=== PATIENT | male | born 1990 | race Two or more races ===

== ENCOUNTER 2019-12-02 16:53 | Emergency (ER) | payer OTHER ==
[2019-12-02] MEDS ORDERED: NORMAL SALINE 1000 ML 1,000 ML IV ONE ×2 (16:56→17:23)
--- NOTE | 2019-12-02 17:05 | ER Document Report ---
ED Medical Screen (RME) - General Chief Complaint: General Weakness Stated Complaint: GENERAL WEAKNESS Time Seen by Provider: 12/02/19 16:55 Primary Care Provider: [facility] [Outside] - Follow up as needed (Local Voluntary Alcohol Detoxification. They are not medical detoxification but are capable of helping most individuals. You can walk in, call or utilize mobile crisis in order to get into this facility.) [facility] [Outside] - Follow up as needed [facility] [Outside] - Follow up as needed (To initiate services: walk in Thursday-Thursday 8:00AM-4:30PM. It willl be a general comprehensive clinical assessment. From that walk in you will get appointments scheduled. ) [facility] [Outside] - Follow up as needed Notes: Patient is a 29-year-old male who presents to the emergency department with a chief complaint of weakness. Patient ended up losing consciousness in the waiting room. I initially saw him in the waiting room and the patient was moved to a stretcher. According to the patient's fianc, the patient has not been feeling well for a month. Patient was at work and "fell out," according to the fianc. Exam: Lethargic, hard to wake up. I have greeted and performed a rapid initial assessment of this patient. A comprehensive ED assessment and evaluation of the patient, analysis of test results and completion of medical decision making process will be conducted by an additional ED providers. TRAVEL OUTSIDE OF THE [place] IN LAST 30 DAYS: No - Related Data Allergies/Adverse Reactions: No Known Allergies Allergy (Verified 11/08/15 07:42) Past Medical History GI Medical History: Reports: Hx Colonoscopy, Hx Endoscopy Musculoskeltal Medical History: Reports Hx Musculoskeletal Trauma Skin Medical History: Reports Hx Cellulitis Psychiatric Medical History: Reports: Hx Depression Traumatic Medical History: Reports: Hx Fractures - hand Past Surgical History: Reports: Hx Abdominal Surgery - pyloric stenosis - Immunizations Hx Diphtheria, Pertussis, Tetanus Vaccination: Yes - 2008 Physical Exam - Vital signs Vitals: Pulse Ox 95 12/02/19 16:56 Course - Vital Signs Vital signs: Temp Pulse Resp BP Pulse Ox 97.3 F 95 12/02/19 17:07 12/02/19 16:56 - Laboratory Result Diagrams: 12/02/19 17:09 12/02/19 17:09 Laboratory results interpreted by me: 12/02/19 12/02/19 12/02/19 17:07 17:09 17:09 Hgb 17.2 H Seg Neutrophils % 40.7 L VBG pH Glucose 121 H POC Glucose 121 H AST 69 H ALT 71 H Creatine Kinase 291 H 12/02/19 19:42 Hgb Seg Neutrophils % VBG pH 7.27 L Glucose POC Glucose AST ALT Creatine Kinase Doctor's Discharge - Discharge Clinical Impression: Depression Qualifiers: Depression Type: unspecified Qualified Code(s): F32.9 - Major depressive disorder, single episode, unspecified Alcohol intoxication Qualifiers: Complication of substance-induced condition: with unspecified complication Qualified Code(s): F10.929 - Alcohol use, unspecified with intoxication, unspecified Condition: Stable Disposition: HOME, SELF-CARE Additional Instructions: You have been evaluated by both medical and behavioral health teams for syncope, general weakness, depression, passive suicidal ideation and alcohol intoxication with use disorder severe. You have been deemed appropriate for discharge. While in the emergency department you received the following services: Medical screening and assessment, nursing services, dietary services, pharmacological services, one-on-one counseling and/or psychotherapy, environmental services, and continuous observation by a patient safety and security manager. It is recommended you go to voluntary inpatient alcohol detoxification where you can be medically monitored during withdrawal. You declined this linkage and connection but have still been provided resources. In addition you have both mobile crisis numbers and a list of local mental health providers for ongoing support and treatment via medication management and therapy. Alcohol is a depressant so often increases depression and suicidal ideation. CHRONIC ALCOHOLISM and ALCOHOL ABUSE: Your evaluation reveals evidence of chronic alcoholism, an addiction to alcohol. The tendency to alcoholism may be inherited. Chronic use of alcohol weakens muscles, causes fatty deposits in the liver, damages the stomach, makes you more prone to infections, and can cause defects in unborn children. In the long run, brain atrophy and cirrhosis of the liver result. You are also at greater risk for certain types of cancer, such as cancer of the mouth, throat, stomach, and liver. Counselling services are available to help you. In-hospital treatment programs often help. Support groups such as Alcoholics Anonymous can be very useful in beating this addiction. Your physician can make a referral for you. As alcoholics often are prone to other addictions, you should discuss your use of any other medications with the doctor. ALCOHOL WITHDRAWAL: (concerns for this if your abruptly stop, medical detoxification is recommended when you abruptly stop suing alcohol) Your symptoms are caused by alcohol withdrawal. After a period of frequent drinking, the brain and body are changed by the alcohol. When you quit or reduce your drinking, the nervous system becomes unstable. Withdrawal symptoms can start a few hours after your last drink, but sometimes don't begin until a couple of days later. Symptoms can include shakiness, sweating, insomnia, nausea, vomiting, fearfulness, hallucinations, and seizures. In addition to the acute effects of alcohol withdrawal, we often have to deal with the medical effects of alcoholism. These problems often include dehydration, stomach irritation, intestinal bleeding, low blood sugar, liver disease, and pancreas inflammation. Treatment for alcohol withdrawal includes mild sedatives, vitamins, and fluids. You need to be with someone who can help if symptoms become severe. Many patients can withdraw at home. Admission to the hospital or a detox facility may be necessary if withdrawal symptoms are severe and uncontrollable. Abstaining from alcohol is the only effective long-term treatment. If you start drinking again, you will not be able to control yourself after the first drink. Treatment programs are available. In addition, many alcoholics benefit from Alcoholics Anonymous or other support groups available through your counselor or druze rn radiation oncology. AL-ANON and ALA-TEEN are support groups for friends and family members of an alcoholic. Go to the emergency room if you develop persistent vomiting, severe abdominal pain, fever, shortness of breath, hallucinations, uncontrollable tremors, or seizures. DEPRESSION: Your evaluation reveals that you have mental depression. While symptoms may be vague, they often include disturbance of sleep, fatigue, loss of appetite, and general loss of interest in life. While depression may be a side effect of drugs, or a reaction to a major change in your life, many cases have no known c ause. If depression is acute, and related to a major loss in your life, you can expect it to clear completely with time. If you have been depressed a long time, are prone to repeated bouts of depression or low mood, or have been thinking of suicide, get help. Depression can be treated with anti-depressant medication and counselling. Long-term depression will often take a few weeks to clear, even with appropriate medication. Follow-up care is important. SUICIDAL IDEATION: (even passive general thoughts of not wanting to live) Suicidal ideation is a common medical term for thoughts about suicide, which may be as detailed as a formulated plan, without the suicidal act itself. Although most people who undergo suicidal ideation do not commit suicide, some go on to make suicide attempts. The range of suicidal ideation varies greatly from fleeting to detailed planning, role playing, and unsuccessful attempts. While thoughts about suicide are common, most people do not carry out serious actions to commit suicide. Based upon your evaluation and discussion with you, we do not believe you are currently at risk to act upon your thoughts of suicide. You have agreed to return to the Emergency Department, at any time, if you feel inclined to act upon your suicidal thoughts. FOLLOW-UP CARE: You declined direct linkage to voluntary inpatient treatment for alcohol det oxification, to outpatient mental health agencies for medication management and/or therapy but are being provided all of these resources as well as mobile crisis numbers. You are recommended to go to medical detoxification for alcohol use. If you experience worsening or a significant change in your symptoms notify your physician immediately, utilize mobile crisis or return to the Emergency Department at any time for re-evaluation. Referrals: [facility] [Outside] - Follow up as needed ([facility] Voluntary Alcohol Detoxification. They are not medical detoxification but are capable of helping most individuals. You can walk in, call or utilize mobile crisis in order to get into this facility.) [facility] [Outside] - Follow up as needed [facility] [Outside] - Follow up as needed (To initiate services: walk in Thursday-Thursday 8:00AM-4:30PM. It willl be a general comprehensive clinical assessment. From that walk in you will get appointments scheduled. ) [facility] [Outside] - Follow up as needed
--- NOTE | 2019-12-02 17:23 | ER Document Report ---
ED Syncope and Near Syncope <TANIA RIVERA - Last Filed: 12/02/19 19:10> - General Mode of Arrival: Medic Information source: Patient TRAVEL OUTSIDE OF THE [place] IN LAST 30 DAYS: No <NKECHIERIKA - Last Filed: 12/02/19 19:34> <MICHAEL PERALTA JR - Last Filed: 12/03/19 03:02> - General Chief Complaint: Syncope Stated Complaint: GENERAL WEAKNESS Time Seen by Provider: 12/02/19 16:55 Primary Care Provider: [facility] [Outside] - Follow up as needed (Local Voluntary Alcohol Detoxification. They are not medical detoxification but are capable of helping most individuals. You can walk in, call or utilize mobile crisis in order to get into this facility.) [facility] [Outside] - Follow up as needed [facility] [Outside] - Follow up as needed (To initiate services: walk in Thursday-Thursday 8:00AM-4:30PM. It willl be a general comprehensive clinical assessment. From that walk in you will get appointments scheduled. ) [facility] [Outside] - Follow up as needed Notes: 29-year-old male presents to the emergency department with a history of a passing out episode at home today. 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 She noted that his speech seemed slurred and he was not himself. She called her workplace and coworkers check on him in the smoke. And found him lying unresponsive holding the phone in his hand. Patient is a heavy drinker and has been drinking large quantities of rum over the past few days. He states his last drink was this morning. There was no incontinence of urine or stool. There was no injury to suggest seizure activity. (ERIKA ARBOLEDA) - Related Data Allergies/Adverse Reactions: No Known Allergies Allergy (Verified 11/08/15 07:42) Past Medical History - Social History Smoking Status: Current Every Day Smoker Frequency of alcohol use: Heavy Drug Abuse: Marijuana Family History: Arthritis, DM, Hypertension, Malignancy Patient has homicidal ideation: No GI Medical History: Reports: Hx Colonoscopy, Hx Endoscopy Musculoskeletal Medical History: Reports Hx Musculoskeletal Trauma Skin Medical History: Reports Hx Cellulitis Psychiatric Medical History: Reports: Hx Depression Traumatic Medical History: Reports: Hx Fractures - hand Past Surgical History: Reports: Hx Abdominal Surgery - pyloric stenosis - Immunizations Hx Diphtheria, Pertussis, Tetanus Vaccination: Yes - 2008 <ERIKA ARBOLEDA - Last Filed: 12/02/19 19:34> Review of Systems <ERIKA ARBOLEDA - Last Filed: 12/02/19 19:34> - Review of Systems Notes: Constitutional: Negative for fever. HENT: Negative for sore throat. Eyes: Negative for visual changes. Cardiovascular: Negative for chest pain. Respiratory: Negative for shortness of breath. Gastrointestinal: Negative for abdominal pain, vomiting or diarrhea. Genitourinary: Negative for dysuria. Musculoskeletal: Negative for back pain. Skin: Negative for rash. Neurological: See HPI 10 point ROS negative except as marked above and in HPI. (ERIKA ARBOLEDA) Physical Exam <ERIKA ARBOLEDA - Last Filed: 12/02/19 19:34> - Vital signs Vitals: Pulse Ox 95 12/02/19 16:56 - Notes Notes: PHYSICAL EXAMINATION: Physical Exam: General: Well-nourished well-developed 29-year-old male in no acute distress HEENT: NC/AT, pupils equal round and reactive to light, MM moist,nares clear, oropharynx clear, airway patent Neck: supple, no adenopathy, no masses. Good range of motion Lungs: clear, no wheezing, no rales no rhonchi CVS: Regular rate and rhythm no murmur gallop or rub Abdomen: Soft, active, nontender, no masses, no hepatosplenomegaly Ext: No edema, clubbing or cyanosis. Neuro: Alert and responsive, moving all 4 extremities on command, cranial nerves intact, no focal findings Skin: Intact no open lesions, no rash (ERIKA ARBOLEDA) Course - Laboratory Result Diagrams: 12/02/19 17:09 12/02/19 17:09 <TANIA RIVERA - Last Filed: 12/02/19 19:10> - Laboratory Result Diagrams: 12/02/19 17:09 12/02/19 17:09 - Diagnostic Test Radiology reviewed: Image reviewed, Reports reviewed - EKG Interpretation by Sc EKG shows normal: Sinus rhythm Rate: Normal - Rate of 97, no acute ST or T wave abnormalities, borderline left axis deviation. <ERIKA ARBOLEDA - Last Filed: 12/02/19 19:34> - Laboratory Result Diagrams: 12/02/19 17:09 12/02/19 17:09 <MICHAEL PERALTA JR - Last Filed: 12/03/19 03:02> - Re-evaluation Re-evalutation: 12/02/19 19:39 Patient experienced a syncopal episode while at work, he is a heavy drinker and appeared to be somewhat somnolent upon his arrival to the emergency department there is no evidence of seizure activity and CT head, chest x-ray EKG and labs are normal. (ERIKA ARBOLEDA) - Vital Signs Vital signs: Temp Pulse Resp BP Pulse Ox 97.3 F 95 12/02/19 17:07 12/02/19 16:56 - Laboratory Laboratory results interpreted by me: 12/02/19 12/02/19 12/02/19 17:07 17:09 17:09 Hgb 17.2 H Seg Neutrophils % 40.7 L VBG pH Glucose 121 H POC Glucose 121 H AST 69 H ALT 71 H Creatine Kinase 291 H 12/02/19 19:42 Hgb Seg Neutrophils % VBG pH 7.27 L Glucose POC Glucose AST ALT Creatine Kinase - Diagnostic Test Radiology results interpreted by me: 12/02/19 19:42 CT head: No acute findings Chest x-ray: No acute cardiopulmonary findings (ERIKA ARBOLEDA) Critical Care Note <MICHAEL PERALTA JR - Last Filed: 12/03/19 03:02> - Critical Care Note Comments: Please note nursing staff discussed 1-2 week history of suicidal ideation and therefore patient was placed into the psychiatric area rather than being discharged home (MICHAEL PERALTA JR) Discharge <TANIA RIVERA - Last Filed: 12/02/19 19:10> <ERIKA ARBOLEDA - Last Filed: 12/02/19 19:34> <MICHAEL PERALTA JR - Last Filed: 12/03/19 03:02> - Discharge Clinical Impression: Depression Qualifiers: Depression Type: unspecified Qualified Code(s): F32.9 - Major depressive disorder, single episode, unspecified Alcohol intoxication Qualifiers: Complication of substance-induced condition: with unspecified complication Qualified Code(s): F10.929 - Alcohol use, unspecified with intoxication, unspecified Condition: Stable Disposition: PSYCH HOSP/UNIT Additional Instructions: You have been evaluated by both medical and behavioral health teams for syncope, general weakness, depression, passive suicidal ideation and alcohol intoxication with use disorder severe. You have been deemed appropriate for discharge. While in the emergency department you received the following services: Medical screening and assessment, nursing services, dietary services, pharmacological services, one-on-one counseling and/or psychotherapy, environmental services, and continuous observation by a patient public safety telecommunicator. It is recommended you go to voluntary inpatient alcohol detoxification where you can be medically monitored during withdrawal. You declined this linkage and connection but have still been provided resources. In addition you have both mobile crisis numbers and a list of local mental health providers for ongoing support and treatment via medication management and therapy. Alcohol is a depressant so often increases depression and suicidal ideation. CHRONIC ALCOHOLISM and ALCOHOL ABUSE: Your evaluation reveals evidence of chronic alcoholism, an addiction to alcohol. The tendency to alcoholism may be inherited. Chronic use of alcohol weakens muscles, causes fatty deposits in the liver, damages the stomach, makes you more prone to infections, and can cause defects in unborn children. In the long run, brain atrophy and cirrhosis of the liver result. You are also at greater risk for certain types of cancer, such as cancer of the mouth, throat, stomach, and liver. Counselling services are available to help you. In-hospital treatment programs often help. Support groups such as Alcoholics Anonymous can be very useful in beating this addiction. Your physician can make a referral for you. As alcoholics often are prone to other addictions, you should discuss your use of any other medications with the doctor. ALCOHOL WITHDRAWAL: (concerns for this if your abruptly stop, medical detoxification is recommended when you abruptly stop suing alcohol) Your symptoms are caused by alcohol withdrawal. After a period of frequent drinking, the brain and body are changed by the alcohol. When you quit or reduce your drinking, the nervous system becomes unstable. Withdrawal symptoms can start a few hours after your last drink, but sometimes don't begin until a couple of days later. Symptoms can include shakiness, sweating, insomnia, nausea, vomiting, fearfulness, hallucinations, and seizures. In addition to the acute effects of alcohol withdrawal, we often have to deal with the medical effects of alcoholism. These problems often include dehydration, stomach irritation, intestinal bleeding, low blood sugar, liver disease, and pancreas inflammation. Treatment for alcohol withdrawal includes mild sedatives, vitamins, and fluids. You need to be with someone who can help if symptoms become severe. Many patients can withdraw at home. Admission to the hospital or a detox facility may be necessary if withdrawal symptoms are severe and uncontrollable. Abstaining from alcohol is the only effective long-term treatment. If you start drinking again, you will not be able to control yourself after the first drink. Treatment programs are available. In addition, many alcoholics benefit from Alcoholics Anonymous or other support groups available through your counselor or restoration optometric aide. AL-ANON and ALA-TEEN are support groups for friends and family members of an alcoholic. Go to the emergency room if you develop persistent vomiting, severe abdominal pain, fever, shortness of breath, hallucinations, uncontrollable tremors, or seizures. DEPRESSION: Your evaluation reveals that you have mental depression. While symptoms may be vague, they often include disturbance of sleep, fatigue, loss of appetite, and general loss of interest in life. While depression may be a side effect of drugs, or a reaction to a major change in your life, many cases have no known cause. If depression is acute, and related to a major loss in your life, you can expect it to clear completely with time. If you have been depressed a long time, are prone to repeated bouts of depression or low mood, or have been thinking of suicide, get help. Depression can be treated with anti-depressant medication and counselling. Long-term depression will often take a few weeks to clear, even with appropriate medication. Follow-up care is important. SUICIDAL IDEATION: (even passive general thoughts of not wanting to live) Suicidal ideation is a common medical term for thoughts about suicide, which may be as detailed as a formulated plan, without the suicidal act itself. Although most people who undergo suicidal ideation do not commit suicide, some go on to make suicide attempts. The range of suicidal ideation varies greatly from fleeting to detailed planning, role playing, and unsuccessful attempts. While thoughts about suicide are common, most people do not carry out serious actions to commit suicide. Based upon your evaluation and discussion with you, we do not believe you are currently at risk to act upon your thoughts of suicide. You have agreed to return to the Emergency Department, at any time, if you feel inclined to act upon your suicidal thoughts. FOLLOW-UP CARE: You declined direct linkage to voluntary inpatient treatment for alcohol detoxification, to outpatient mental health agencies for medication management and/or therapy but are being provided all of these resources as well as mobile crisis numbers. You are recommended to go to medical detoxification for alcohol use. If you experience worsening or a significant change in your symptoms notify your physician immediately, utilize mobile crisis or return to the Emergency Department at any time for re-evaluation. Referrals: [facility] [Outside] - Follow up as needed [facility] [Outside] - Follow up as needed [facility] [Outside] - Follow up as needed (Local Voluntary Alcohol Detoxification. They are not medical detoxification but are capable of helping most individuals. You can walk in, call or utilize mobile crisis in order to get into this facility.) [facility] [Outside] - Follow up as needed (To initiate services: walk in Thursday-Thursday 8:00AM-4:30PM. It willl be a general comprehensive clinical assessment. From that walk in you will get appointments scheduled. )
[2019-12-02 17:33] LABS: ABSOLUTE EOSINOPHILS # (AUTO) 0.2 10^3/uL (0.0-0.6); ABSOLUTE LYMPHOCYTES (AUTO) 2.8 10^3/uL (0.5-4.7); ABSOLUTE MONOCYTES (AUTO) 0.8 10^3/uL (0.1-1.4); ABSOLUTE NEUT (AUTO) 2.6 10^3/uL (1.7-8.2); BASOPHILS % (AUTO) 0.4 % (0-2); HEMATOCRIT 48.8 % (37.9-51.0); HEMOGLOBIN 17.2 g/dL (13.5-17.0); LYMPHOCYTES % (AUTO) 43.5 % (13-45); MEAN CORPUSCULAR HEMOGLOBIN 32.2 pg (27.0-33.4); MEAN CORPUSCULAR HGB CONC 35.1 g/dL (32.0-36.0); MEAN CORPUSCULAR VOLUME 92 fl (80-97); MONOCYTES % (AUTO) 12.4 % (3-13); PLATELET COUNT 196 10^3/uL (150-450); RED BLOOD COUNT 5.32 10^6/uL (4.35-5.55); RED CELL DISTRIBUTION WIDTH 13.2 % (11.5-14.0); SEGMENTED NEUTROPHILS % (AUTO) 40.7 % (42-78); TOTAL CELLS COUNTED % (AUTO) 100 %; WHITE BLOOD COUNT 6.5 10^3/uL (4.0-10.5)
--- NOTE | 2019-12-02 17:42 | RADIOLOGY REPORT (SQ) ---
EXAM DESCRIPTION: CHEST SINGLE VIEW IMAGES COMPLETED DATE/TIME: 12/02/2019 5:09 pm REASON FOR STUDY: weakness COMPARISON: None. EXAM PARAMETERS: NUMBER OF VIEWS: One view. TECHNIQUE: Single frontal radiographic view of the chest acquired. RADIATION DOSE: NA LIMITATIONS: None. FINDINGS: LUNGS AND PLEURA: No opacities, masses or pneumothorax. No pleural effusion. MEDIASTINUM AND HILAR STRUCTURES: No masses. Contour normal. HEART AND VASCULAR STRUCTURES: Heart normal in size. Normal vasculature. BONES: No acute findings. HARDWARE: None in the chest. OTHER: No other significant finding. IMPRESSION: NO ACUTE RADIOGRAPHIC FINDING IN THE CHEST. TECHNICAL DOCUMENTATION: JOB ID: [id number] 2010 [employer]- All Rights Reserved Reading location - IP/workstation name: [email or web address]
--- NOTE | 2019-12-02 17:47 | RADIOLOGY REPORT (SQ) ---
EXAM DESCRIPTION: CT HEAD WITHOUT IMAGES COMPLETED DATE/TIME: 12/02/2019 5:31 pm REASON FOR STUDY: Syncope COMPARISON: 11/08/2015 TECHNIQUE: Axial images acquired through the brain without intravenous contrast. Images reviewed wi th bone, brain and subdural windows. Additional sagittal and coronal reconstructions were generated. Images stored on PACS. All CT scanners at this facility use dose modulation, iterative reconstruction, and/or weight based d osing when appropriate to reduce radiation dose to as low as reasonably achievable (ALARA). [facility]: Dose Right [facility]: CareDose [facility]: Dose Right [facility]: Teradose 4D [facility]: [employer] RADIATION DOSE: CT Rad equipment meets quality standard of care and radiation dose reduction techniq ues were employed. CTDIvol: 53.2 mGy. DLP: 991 mGy-cm. mGy. LIMITATIONS: None. FINDINGS: VENTRICLES: Normal size and contour. CEREBRUM: No masses. No hemorrhage. No midline shift. No evidence for acute infarction. Normal gra y/white matter differentiation. No areas of low density in the white matter. CEREBELLUM: No masses. No hemorrhage. No alteration of density. No evidence for acute infarction. EXTRAAXIAL SPACES: No fluid collections. No masses. ORBITS AND GLOBE: No intra- or extraconal masses. Normal contour of globe without masses. CALVARIUM: No fracture. PARANASAL SINUSES: No fluid or mucosal thickening. SOFT TISSUES: No mass or hematoma. OTHER: No other significant finding. IMPRESSION: NORMAL BRAIN CT WITHOUT CONTRAST. EVIDENCE OF ACUTE STROKE: NO. COMMENT: Quality ID # [id number]: Final reports with documentation of one or more dose reduction techniques (e.g., Automated exposure control, adjustment of the mA and/or kV according to patient size, use of iterative reconstruction technique) TECHNICAL DOCUMENTATION: JOB ID: [id number] 2010 [employer]- All Rights Reserved Reading location - IP/workstation name: [email or web address]
[2019-12-02 17:53] LABS: APPEARANCE,URINE CLEAR; BILIRUBIN,URINE NEGATIVE (NEGATIVE); COLOR,URINE COLORLESS; GLUCOSE, URINE NEGATIVE (NEGATIVE); KETONES,URINE NEGATIVE (NEGATIVE); LEUKOCYTE ESTERASE,URINE NEGATIVE (NEGATIVE); NITRITE,URINE NEGATIVE (NEGATIVE); PROTEIN,URINE NEGATIVE (NEGATIVE); URINE SPECIFIC GRAVITY 1.002; UROBILINOGEN,URINE NEGATIVE mg/dL (<2.0)
[2019-12-02 18:10] LABS: ALBUMIN 4.8 g/dL (3.5-5.0); ALKALINE PHOSPHATASE 87 U/L (38-126); ANION GAP 11 (5-19); ASPARTATE AMINO TRANSFERASE 69 U/L (17-59); BILIRUBIN,TOTAL 0.3 mg/dL (0.2-1.3); BLOOD UREA NITROGEN 19 mg/dL (7-20); CALCIUM 9.5 mg/dL (8.4-10.2); CARBON DIOXIDE 24 mmol/L (22-30); CHLORIDE 106 mmol/L (98-107); CREATINE KINASE 291 U/L (55-170); GLUCOSE 121 mg/dL (75-110); POTASSIUM 4.3 mmol/L (3.6-5.0); TOTAL PROTEIN 7.8 g/dL (6.3-8.2)
[2019-12-02 20:13] LABS: VENOUS BLOOD BASE EXCESS -5.4 mmol/L; VENOUS BLOOD PCO2 49.6 mmHg (35-63); VENOUS BLOOD PH 7.27 (7.30-7.42)
--- NOTE | 2019-12-02 20:13 | EKG REPORT ---
SEVERITY:- OTHERWISE NORMAL ECG - SINUS RHYTHM BORDERLINE LEFT AXIS DEVIATION : Confirmed by: Harvey Valadez MD 02-Dec-2019 20:12:51
[2019-12-02 21:11] LABS: URINE AMPHETAMINES SCREEN NEGATIVE; URINE BARBITURATES SCREEN NEGATIVE; URINE BENZODIAZEPINES SCREEN NEGATIVE; URINE COCAINE SCREEN NEGATIVE; URINE MARIJUANA (THC) SCREEN NEGATIVE; URINE METHADONE SCREEN NEGATIVE; URINE PHENCYCLIDINE SCREEN NEGATIVE
--- NOTE | 2019-12-03 08:28 | PSYCHOLOGICAL NOTE ---
Psych Note - Psych Note Date seen by psych provider: 12/02/19 Time seen by psych provider: 18:29 - [id number] evaluation. Jeannetavo collateral [id number]. Psych Note: Presenting Problem: Patient is a 29 year old male who presented to the [facility] ED today via POV/Fiance for syncope/general weakness. During triage he answered yes to the depressing screening questions of in the past 2 weeks have you felt down/depressed/hopeless and in the past two weeks have you had thoughts of killing yourself. Patient also admitted to regular alcohol use, drinking a liter a day. Patient was sleeping. He would not wake up to his last name being said loudly, his first name being said loudly, gently shake of hand, gentle shake of leg or combination of. The Attending ED Nurse had to do a sternum rub. He woke up, could barely keep his eyes open and answered some questions before falling asleep. He reported the suicidal thoughts are general thoughts of not wanting to live or wanting to , no plans. He denied previous suicide attempts. He admitted to previous rehab and declined wanting linkage/referral to voluntary detox. He denied being involved in outpatient mental health treatment and again declined linkage/referral. Serum Alcohol Level upon arrival to the ED was 285. Patient was alert and oriented to self, person, place, and situation when awake. Mood was difficult to ascertain but came across euthymic with congruent affect. He denied current SI/HI, admitted to answering yes to having thoughts of wanting to kill himself in the past two weeks and identified they were passive general thoughts of not wanting to live (no plan, no action per patient and fiance). Patient did not appear to be responding to internal stimuli as evidenced by answering questions appropriately when addressed. Thought processes were difficult to ascertain but he was able to stay on topic with redirection. Conversational speech was somewhat slurred and soft in tone. Intellectual abilities are estimated to be average. Insight, judgment and impulse control were fair as evidenced by being honest during depression screening. Collateral: From [id number] obtained collateral from fiance/Next of Kin/Person to Notify Babita Shankar ([phone]). She stated she brought patient to the ED today and that he had been at work. She stated "no patient is not physically a danger to self and I am not concerned for his well being in that manner." She identified patient "does struggle with alcohol abuse, he is stuck in his ways and has been that way for the past 5 years we have been together." She acknowledged he has a history of depression going back to age 12 maybe younger. Farooq stated "he o ften doesn't feel energized or like he has meaning." She reported "he has ups and downs, there are days he is good and happy and there are days when he doesn't want to do anything." She reported "he gets so down he feels worthless but then he talks about it and is okay." She gave an example of patient's daughter asking to go see her mother and patient thinking that means his daughter doesn't love him. Farooq commented "he takes things personally." Farooq stated "with alcohol he feels like he can do more things, he drinks to feel normal, sometimes it gets out of hand but usually he just goes to sleep, sometimes sleeping for 16 hours straight." She noted patient has had 2 DUIs. Farooq stated patient drinks spiced rum and Coca Cola. She stated she asks him to cut back and he says he'll work on it. She identified in the past he used marijuana, at the beginning of their relationship it affected him in a big way, now she thinks if he uses it it's occasional. Farooq stated she has been talking with patient's mother. mother is concerned about the drinking and how it affects depression, they discussed trying to have an intervention. Farooq reported patient has commented he doesn't think he would survive detox. She denied patient making previous suicide attempts. Clinical Presentation: Alcohol Intoxication Diagnosis: Alcohol Intoxication with Use Disorder, Severe History of Depression Impression/Plan: Patient is cleared from acute psychiatric services. He denied current SI/HI while admitting to passive general thoughts of not wanting to live. Both he and farooq denied previous attempts. He was under the influence of alcohol but did not seem to be responding to internal stimuli as evidenced by answering questions appropriately when addressed. Patient and farooq admitted to alcohol problem. Farooq noted a history of depression. Patient declined linkage/referral to voluntary detox and being connected to local mental health provider. Informed farooq patient would have resources as part of his discharge instructions and separate sheets. Provided patient with the outpatient MH resource sheet which highlighted both [facility] numbers for crisis/talk therapy/linkage to other services and supports, as well as documented walk in to [place] information. Also provided the outpatient SA list which highlighted both [facility] numbers/documented either would assist with voluntary detox/treatment, listed all 6 detox facilities, noted local one and also identified the 4 medical detox facilities. Consulted with Dr. Zapata regarding the management and care of patient. ED Physician in agreement with recommendations.
--- NOTE | 2019-12-03 12:05 | ER Document Report ---
Doctor's Note Notes: 12/03/19 12:04 Patient in no distress at this time. Has been evaluated by the psychiatric team today. Patient does have history of depression, does not espouse suicidal ideation at this time. Psychiatric team believe patient may be discharged to follow-up with resources, patient's fianc will pick him up. Patient notes from last night indicate that there was consideration for discharge last night still.
[2019-12-03 13:04] VITALS: BP 137/92
== END 2019-12-03 13:05 ==
LOC: ER 16:53
DX: F32.9 Major depressive disorder, single episode, unspecified (principal); F10.929 Alcohol use, unspecified with intoxication, unspecified; R53.1 Weakness; R45.851 Suicidal ideations; F17.200 Nicotine dependence, unspecified, uncomplicated
CPT/HCPCS: 93005; 99285; 96360; 96361; 36415; 87040; 82962; 80307 ×2; 82550; 83605; 83735; 85025; 80053; 81001; 82803; 71045; 70450; 93010; J7030

== ENCOUNTER → 2019-12-09 | Outpatient (CLI) | payer OTHER ==
[2019-12-09 08:25] LABS: ABSOLUTE EOSINOPHILS # (AUTO) 0.2 10^3/uL (0.0-0.6); ABSOLUTE LYMPHOCYTES (AUTO) 2.5 10^3/uL (0.5-4.7); ABSOLUTE MONOCYTES (AUTO) 0.8 10^3/uL (0.1-1.4); ABSOLUTE NEUT (AUTO) 3.1 10^3/uL (1.7-8.2); BASOPHILS % (AUTO) 0.3 % (0-2); EOSINOPHILS % (AUTO) 2.5 % (0-6); HEMATOCRIT 44.3 % (37.9-51.0); LYMPHOCYTES % (AUTO) 38.1 % (13-45); MEAN CORPUSCULAR HEMOGLOBIN 32.6 pg (27.0-33.4); MEAN CORPUSCULAR HGB CONC 36.1 g/dL (32.0-36.0); MEAN CORPUSCULAR VOLUME 90 fl (80-97); MONOCYTES % (AUTO) 11.8 % (3-13); PLATELET COUNT 166 10^3/uL (150-450); RED BLOOD COUNT 4.92 10^6/uL (4.35-5.55); RED CELL DISTRIBUTION WIDTH 12.7 % (11.5-14.0); SEGMENTED NEUTROPHILS % (AUTO) 47.3 % (42-78); TOTAL CELLS COUNTED % (AUTO) 100 %; WHITE BLOOD COUNT 6.5 10^3/uL (4.0-10.5)
[2019-12-09 08:52] LABS: ALBUMIN 4.5 g/dL (3.5-5.0); ALKALINE PHOSPHATASE 71 U/L (38-126); ANION GAP 6 (5-19); ASPARTATE AMINO TRANSFERASE 47 U/L (17-59); BILIRUBIN,TOTAL 0.6 mg/dL (0.2-1.3); BLOOD UREA NITROGEN 18 mg/dL (7-20); CALCIUM 9.1 mg/dL (8.4-10.2); CARBON DIOXIDE 27 mmol/L (22-30); CHLORIDE 105 mmol/L (98-107); GLUCOSE 97 mg/dL (75-110); POTASSIUM 3.9 mmol/L (3.6-5.0); TOTAL PROTEIN 7.3 g/dL (6.3-8.2)
== END ==
LOC: OD 07:25
PROVIDERS: ATTEND Family Medicine
DX: R53.83 Other fatigue (principal); R55 Syncope and collapse; Z83.3 Family history of diabetes mellitus
CPT/HCPCS: 36415; 80053; 84443; 85025

== ENCOUNTER 2019-12-29 14:04 | Emergency (ER) | payer OTHER ==
[2019-12-29 16:14] LABS: ABSOLUTE LYMPHOCYTES (AUTO) 0.7 10^3/uL (0.5-4.7); ABSOLUTE MONOCYTES (AUTO) 0.8 10^3/uL (0.1-1.4); ABSOLUTE NEUT (AUTO) 5.8 10^3/uL (1.7-8.2); BASOPHILS % (AUTO) 0.1 % (0-2); EOSINOPHILS % (AUTO) 0.2 % (0-6); HEMATOCRIT 50.3 % (37.9-51.0); HEMOGLOBIN 17.7 g/dL (13.5-17.0); LYMPHOCYTES % (AUTO) 9.2 % (13-45); MEAN CORPUSCULAR HEMOGLOBIN 31.9 pg (27.0-33.4); MEAN CORPUSCULAR HGB CONC 35.2 g/dL (32.0-36.0); MEAN CORPUSCULAR VOLUME 91 fl (80-97); MONOCYTES % (AUTO) 10.9 % (3-13); PLATELET COUNT 183 10^3/uL (150-450); RED BLOOD COUNT 5.55 10^6/uL (4.35-5.55); RED CELL DISTRIBUTION WIDTH 12.8 % (11.5-14.0); SEGMENTED NEUTROPHILS % (AUTO) 79.6 % (42-78); TOTAL CELLS COUNTED % (AUTO) 100 %; WHITE BLOOD COUNT 7.4 10^3/uL (4.0-10.5)
[2019-12-29] MEDS ORDERED: THIAMINE HCL 100 MG, FOLIC ACID 1 MG in NORMAL SALINE 250 ML IV ONE (16:15)
--- NOTE | 2019-12-29 16:18 | ER Document Report ---
ED Dizziness/Weakness - General Chief Complaint: Weakness Stated Complaint: CHILLS,FATIGUE Time Seen by Provider: 12/29/19 15:52 Primary Care Provider: MARTHA JAMES MD [COMMUNITY BASED STAFF] - Follow up as needed Mode of Arrival: Ambulatory Information source: Patient Notes: Patient presents complaining of decreased energy and fatigue for the past 2 to 3 weeks that worsened over the past 2 days. Patient states that he has had some nausea only with eating but otherwise has not had any nausea vomiting or diarrhea symptoms. Patient reports occasional cold sweats. Patient denies any fever or cough. Patient states he has been attempting to decrease the amount of alcohol he drinks. Patient typically drinks half to a full bottle of rum a day. Patient states that he did attempt to stop drinking for about a day earlier this week and is uncertain if his attempts at decreasing his intake is affecting his symptoms. TRAVEL OUTSIDE OF THE [place] 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 denies: Fever EENT: No symptoms reported Cardiovascular: No symptoms reported. denies: Chest pain Respiratory: No symptoms reported Gastrointestinal: Nausea. denies: Vomiting Genitourinary: No symptoms reported Male Genitourinary: No symptoms reported Musculoskeletal: No symptoms reported Skin: No symptoms reported Hematologic/Lymphatic: No symptoms reported Neurological/Psychological: No symptoms reported Physical Exam - Vital signs Vitals: Temp Pulse Resp BP Pulse Ox 98.9 F 102 H 20 126/101 H 97 12/29/19 14:22 12/29/19 14:22 12/29/19 14:22 12/29/19 14:22 12/29/19 14:22 - General General appearance: Appears well, Alert In distress: None - HEENT Head: Normocephalic, Atraumatic Eyes: Normal Conjunctiva: Normal Nasal: Normal Mouth/Lips: Normal Mucous membranes: Normal Pharynx: Normal Neck: Normal, Supple. No: Lymphadenopathy, Meningismus - Respiratory Respiratory status: No respiratory distress Chest status: Nontender Breath sounds: Normal. No: Rales, Rhonchi, Stridor, Wheezing Chest palpation: Normal - Cardiovascular Rhythm: Regular Heart sounds: S1 appreciated, S2 appreciated Murmur: No - Abdominal Inspection: Normal Distension: No distension Bowel sounds: Normal Tenderness: Nontender Organomegaly: No organomegaly - Back Back: Normal, Nontender. No: CVA tenderness - Extremities General upper extremity: Normal inspection, Normal strength General lower extremity: Normal inspection, Normal strength - Neurological Neuro grossly intact: Yes Cognition: Normal Kirstie Coma Scale Eye Opening: Spontaneous Sheridan Coma Scale Verbal: Oriented Kirstie Coma Scale Motor: Obeys Commands Sheridan Coma Scale Total: 15 - Psychological Associated symptoms: Normal affect, Normal mood - Skin Skin Temperature: Warm Skin Moisture: Dry Skin Color: Normal Course - Re-evaluation Re-evalutation: 12/29/19 18:[address] [place] regarding patient presentation. Patient without any acute abnormality on diagnostic evaluation. Patient does acknowledge depression and is yet to start his antidepressant medication. Patient's chief complaint is decrease in energy. Patient states that he has had occasional chills. Patient will be COVID tested prior to discharge. Patient given a copy of his labs and encouraged to see his primary doctor for recheck. Patient verbalized understanding and is agreeable with plan of care. - Vital Signs Vital signs: Temp Pulse Resp BP Pulse Ox 98.7 F 80 18 132/78 H 99 12/29/19 19:00 12/29/19 19:00 12/29/19 19:00 12/29/19 19:00 12/29/19 19:00 - Laboratory Result Diagrams: 12/29/19 15:40 12/29/19 15:40 Laboratory results interpreted by me: 12/29/19 12/29/19 12/29/19 15:40 15:40 15:40 Hgb 17.7 H Lymph % (Auto) 9.2 L Seg Neutrophils % 79.6 H Glucose 119 H Total Protein 8.4 H Albumin 5.1 H TSH Free T4 Urine Blood SMALL H Urine Urobilinogen 2.0 H 12/29/19 15:40 Hgb Lymph % (Auto) Seg Neutrophils % Glucose Total Protein Albumin TSH 0.34 L Free T4 0.71 L Urine Blood Urine Urobilinogen Labs- All tests 24 hr 12/29/19 12/29/19 12/29/19 15:40 15:40 15:40 WBC 7.4 RBC 5.55 Hgb 17.7 H Hct 50.3 MCV 91 MCH 31.9 MCHC 35.2 RDW 12.8 Plt Count 183 Lymph % (Auto) 9.2 L Evangeline % (Auto) 10.9 Eos % (Auto) 0.2 Baso % (Auto) 0.1 Absolute Neuts (auto) 5.8 Absolute Lymphs (auto) 0.7 Absolute Monos (auto) 0.8 Absolute Eos (auto) 0.0 Absolute Basos (auto) 0.0 Seg Neutrophils % 79.6 H Sodium 138.2 Potassium 4.3 Chloride 104 Carbon Dioxide 27 Anion Gap 7 BUN 11 Creatinine 0.98 Est GFR ( Amer) > 60 Est GFR (MDRD) Non-Af > 60 Glucose 119 H Calcium 10.2 Magnesium Total Bilirubin 0.7 Direct Bilirubin 0.0 Neonat Total Bilirubin Not Reportable Neonat Direct Bilirubin Not Reportable Neonat Indirect Bili Not Reportable AST 39 ALT 42 Alkaline Phosphatase 88 Total Protein 8.4 H Albumin 5.1 H TSH Free T4 Free T3 pg/mL Urine Color YELLOW Urine Appearance SLIGHTLY-CLOUDY Urine pH 6.0 Ur Specific Hutto 1.016 Urine Protein NEGATIVE Urine Glucose (UA) NEGATIVE Urine Ketones NEGATIVE Urine Blood SMALL H Urine Nitrite NEGATIVE Urine Bilirubin NEGATIVE Urine Urobilinogen 2.0 H Ur Leukocyte Esterase NEGATIVE Urine WBC (Auto) 3 Urine RBC (Auto) 2 U Hyaline Cast (Auto) 3 Urine Bacteria (Auto) TRACE Squamous Epi Cells Auto <1 Urine Mucus (Auto) FEW Urine Ascorbic Acid NEGATIVE 12/29/19 12/29/19 15:40 15:40 WBC RBC Hgb Hct MCV MCH MCHC RDW Plt Count Lymph % (Auto) Evangeline % (Auto) Eos % (Auto) Baso % (Auto) Absolute Neuts (auto) Absolute Lymphs (auto) Absolute Monos (auto) Absolute Eos (auto) Absolute Basos (auto) Seg Neutrophils % Sodium Potassium Chloride Carbon Dioxide Anion Gap BUN Creatinine Est GFR ( Amer) Est GFR (MDRD) Non-Af Glucose Calcium Magnesium 1.8 Total Bilirubin Direct Bilirubin Neonat Total Bilirubin Neonat Direct Bilirubin Neonat Indirect Bili AST ALT Alkaline Phosphatase Total Protein Albumin TSH 0.34 L Free T4 0.71 L Free T3 pg/mL 2.90 Urine Color Urine Appearance Urine pH Ur Specific Hutto Urine Protein Urine Glucose (UA) Urine Ketones Urine Blood Urine Nitrite Urine Bilirubin Urine Urobilinogen Ur Leukocyte Esterase Urine WBC (Auto) Urine RBC (Auto) U Hyaline Cast (Auto) Urine Bacteria (Auto) Squamous Epi Cells Auto Urine Mucus (Auto) Urine Ascorbic Acid Discharge - Discharge Clinical Impression: Decreased energy, Encounter for screening laboratory testing for COVID-19 virus Fatigue Qualifiers: Fatigue type: unspecified Qualified Code(s): R53.83 - Other fatigue Depression Qualifiers: Depression Type: unspecified Qualified Code(s): F32.9 - Major depressive disorder, single episode, unspecified Condition: Stable Disposition: HOME, SELF-CARE Instructions: COVID-19 Guidance for Persons Under Investigation, Malaise ([facility]) Additional Instructions: Return immediately for any new or worsening symptoms Followup with your primary care provider, call tomorrow to make a followup appoi ntment Forms: Return to Work Referrals: MARTHA JAMES MD [COMMUNITY BASED STAFF] - Follow up as needed
[2019-12-29 16:19] LABS: APPEARANCE,URINE SLIGHTLY-CLOUDY; BILIRUBIN,URINE NEGATIVE (NEGATIVE); COLOR,URINE YELLOW; GLUCOSE, URINE NEGATIVE (NEGATIVE); KETONES,URINE NEGATIVE (NEGATIVE); LEUKOCYTE ESTERASE,URINE NEGATIVE (NEGATIVE); NITRITE,URINE NEGATIVE (NEGATIVE); PROTEIN,URINE NEGATIVE (NEGATIVE); URINE SPECIFIC GRAVITY 1.016
[2019-12-29 16:28] LABS: ALBUMIN 5.1 g/dL (3.5-5.0); ALKALINE PHOSPHATASE 88 U/L (38-126); ANION GAP 7 (5-19); ASPARTATE AMINO TRANSFERASE 39 U/L (17-59); BILIRUBIN,TOTAL 0.7 mg/dL (0.2-1.3); BLOOD UREA NITROGEN 11 mg/dL (7-20); CALCIUM 10.2 mg/dL (8.4-10.2); CARBON DIOXIDE 27 mmol/L (22-30); CHLORIDE 104 mmol/L (98-107); GLUCOSE 119 mg/dL (75-110); POTASSIUM 4.3 mmol/L (3.6-5.0); TOTAL PROTEIN 8.4 g/dL (6.3-8.2)
[2019-12-29 17:13] LABS: FREE T3 2.9 pg/mL (2.77-5.27); FREE T4 (FREE THYROXINE) 0.71 ng/dL (0.78-2.19); THYROID STIMULATING HORMONE 0.34 uIU/mL (0.47-4.68)
--- NOTE | 2019-12-29 18:22 | EKG REPORT ---
SEVERITY:- NORMAL ECG - SINUS RHYTHM : Confirmed by: Saji Chauhan MD 29-Dec-2019 18:21:29
[2019-12-29 19:02] VITALS: BP 132/78
== END 2019-12-29 19:00 | disposition home or self-care (01) ==
LOC: ER 14:04
DX: R53.83 Other fatigue (principal); F32.9 Major depressive disorder, single episode, unspecified; R11.0 Nausea; R53.81 Other malaise; R53.1 Weakness; R68.83 Chills (without fever); F17.200 Nicotine dependence, unspecified, uncomplicated; Z20.828 Contact with and (suspected) exposure to other viral communicable diseases
CPT/HCPCS: 93005; 99284; 96365; 36415; 84439; 83735; 84443; 85025; 87635; 80053; 81001; 84481; 93010; J3490; J3411; J7050; C9803

== ENCOUNTER 2019-12-29 23:53 | Emergency (ER) | payer OTHER ==
[2019-12-30 00:04] VITALS: BP 138/91
== END 2019-12-30 00:26 | disposition left against medical advice (07) ==
LOC: ER 23:53
DX: Z53.21 Procedure and treatment not carried out due to patient leaving prior to being seen by health care provider (principal)

== ENCOUNTER → 2020-01-05 | Outpatient (CLI) | payer OTHER ==
--- NOTE | 2020-01-05 11:25 | RADIOLOGY REPORT (SQ) ---
EXAM DESCRIPTION: MRI HEAD WITHOUT IMAGES COMPLETED DATE/TIME: 01/05/2020 9:34 am REASON FOR STUDY: R55 SYNCOPE AND COLLAPSE R55 SYNCOPE AND COLLAPSE COMPARISON: None. TECHNIQUE: Multiplanar imaging includes non-contrasted T1, T2, FLAIR, and diffusion with ADC map seq uences. Images stored on PACS. LIMITATIONS: None. FINDINGS: ANATOMY: No anomalies. Normal vascular flow voids. Pituitary fossa normal. CSF SPACES: Normal in size and contour. No hemorrhage. CEREBRUM: Sulci and gyri normal in size and contour. Normal white matter signal on FLAIR imaging. No evidence of hemorrhage, mass, or extraaxial fluid collection. POSTERIOR FOSSA: No signal alteration. No hemorrhage. No edema, masses or mass effect. Internal temo tory canals, cerebello-pontine angles, mastoids normal. DIFFUSION IMAGING: Negative for acute or sub-acute infarction. ORBITS: No masses. Globes normal. PARANASAL SINUSES: No fluid levels. OTHER: No other significant finding. IMPRESSION: Normal brain. EVIDENCE OF ACUTE STROKE: NO. TECHNICAL DOCUMENTATION: JOB ID: [id number] 2010 [employer]- All Rights Reserved Reading location - IP/workstation name: [email or web address]
== END ==
LOC: RAD 08:27
PROVIDERS: ATTEND Family Medicine
DX: R55 Syncope and collapse (principal)
CPT/HCPCS: 70551